=== PATIENT | male | born 1955 | race Caucasian/White ===

== ENCOUNTER → 2019-09-08 | Outpatient (CLI) | payer OTHER ==
[~2019-09-08] MED LIST: CATHETER FLUSH 10 ML SYR IV PRN; HOLD METFORMIN - RECEIVED CONTRAST 20 ML VIAL IV SCH; IOHEXOL 350 MG/ML 100 ML (OMNIPAQUE 350) VIAL IV ONE; NS 100 ML (IVPB) BAG IV ONE
--- NOTE | 2019-09-08 10:36 | Diagnostic Imaging Report ---
PROCEDURE: CT abdomen and pelvis with and without contrast. TECHNIQUE: Precontrast acquisitions were acquired through the abdomen and pelvis. Multiple contiguous axial images were obtained through the abdomen and pelvis after the administration of intravenous contrast. Auto Exposure Controls were utilized during the CT exam to meet ALARA standards for radiation dose reduction. INDICATION: Abdominal pain and hematuria. COMPARISON: No prior studies are available for comparison. FINDINGS: The lung bases are clear. No discrete liver mass is identified. Gallbladder is unremarkable. No biliary ductal dilatation is seen. The pancreas and spleen are unremarkable. No adrenal mass is identified. Left kidney does contain an 8 mm nonobstructing calculus. No hydronephrosis is seen. No definite ureteral calculus or hydronephrosis is identified. There are small renal cortical low densities, too small to characterize but may represent cysts. No definite filling defects within the renal collecting systems or ureters are seen. Bladder is unremarkable. Prostate does appear to be enlarged and contains some calcifications. The aorta is calcified but not aneurysmal. No central, retroperitoneal or mesenteric lymphadenopathy is seen. The small and large bowel loops are normal caliber. No obstruction is identified. There is diverticulosis of the sigmoid but no evidence of acute diverticulitis. No definite pelvic lymphadenopathy is seen. There is a fat-containing left inguinal hernia. The bony structures are nonacute. IMPRESSION: 1. 8mm nonobstructing left renal calculus. 2. Tiny renal cortical low densities, too small to characterize but may represent cysts. 3. Uncomplicated diverticulosis. 4. Prostatomegaly. 5. Fat-containing left inguinal hernia. Dictated by: Dictated on workstation # [id number]
== END ==
LOC: RAD FS 09:35
PROVIDERS: ATTEND Nurse Practitioner Family
DX: M54.6 Pain in thoracic spine (principal); N20.0 Calculus of kidney; K57.30 Diverticulosis of large intestine without perforation or abscess without bleeding; N40.0 Benign prostatic hyperplasia without lower urinary tract symptoms; K40.90 Unilateral inguinal hernia, without obstruction or gangrene, not specified as recurrent
CPT/HCPCS: 74178

== ENCOUNTER → 2020-03-08 | Outpatient (CLI) | payer OTHER ==
--- NOTE | 2020-03-08 14:06 | Diagnostic Imaging Report ---
INDICATION: Kidney stone. COMPARISON: 09/08/2019. FINDINGS: The previously reported calculus in the left kidney on the CT scan of 09/08/2019 measuring approximately 8 mm is unchanged. No new calculi have developed. No calcifications are seen along the path of the ureter. IMPRESSION: Persistent 8 mm calculus in the upper pole of the left kidney. Dictated by: Dictated on workstation # [id number]
== END ==
LOC: RAD 13:21
PROVIDERS: ATTEND Urology
DX: N20.0 Calculus of kidney (principal)
CPT/HCPCS: 74018

== ENCOUNTER 2020-03-12 09:14 | Outpatient (RCR) | payer OTHER ==
[~2020-03-12] VITALS: Ht 180.3 cm; Wt 81.8 kg
== END 2020-03-12 15:08 | disposition home or self-care (01) ==
LOC: PREOP 09:14
PROVIDERS: ATTEND Urology
DX: Z01.818 Encounter for other preprocedural examination (principal); Z11.59 Encounter for screening for other viral diseases
CPT/HCPCS: 87635

== ENCOUNTER 2020-03-16 08:48 | Day surgery (SDC) | payer OTHER ==
[~2020-03-16] VITALS: Ht 180.3 cm; Wt 81.8 kg
[2020-03-16] VITALS (9 sets, daily range): BP systolic 139–182; BP diastolic 84–96
[2020-03-16] MEDS ORDERED: ceFAZolin INJECTION 1,000 MG in WATER (STERILE) FOR INJECTION 10 ML IV ONE (09:00)
--- NOTE | 2020-03-16 09:36 | Diagnostic Imaging Report ---
INDICATION: Preop left kidney stone. COMPARISON: 03/08/2020. FINDINGS: An 8 mm calculus overlying the upper pole of the left kidney is again demonstrated, unchanged in location. No additional calculi are demonstrated. IMPRESSION: Calculus overlying the upper pole of the left kidney, unchanged in appearance when compared with the previous exam. Dictated by: Dictated on workstation # [id number]
--- NOTE | 2020-03-16 09:38 | Progress Note-Pre Operative ---
Pre-Operative Progress Note H&P Reviewed The H&P was reviewed, patient examined and no changes noted. Date Seen by Provider: March 16, 2020 Time Seen by Provider: 09:38 Date H&P Reviewed: March 16, 2020 Time H&P Reviewed: 09:38 Pre-Operative Diagnosis: LT RENAL STONE ANTONELLA MARSHALL MD March 16, 2020 09:38
[2020-03-16] MEDS: LACTATED RINGERS 1,000 ML IV PRN ×2 (09:41→12:20)
--- OUTSIDE RECORDS SUMMARY | 2020-03-16 09:46 | XMS REPORT | Continuity of Care Document ---
Author Organization Unknown Address Unknown Phone Unavailable Allergies Active Description Code Type Severity Reaction Onset Reported/Identified Relationship to Patient Clinical Status Yes Sulfa (Sulfonamide Antibiotics) [id number] 0491 Drug Allergy Unknown N/A 019 Medications There is no data. Problems Date Dx Coded Attending Type Code Diagnosis Diagnosed By 10/11/1507 ANTONELLA MARSHALL MD, Ot Z01.8 18 ENCOUNTER FOR OTHER PREPROCEDURAL EXAMIN 10/11/1507 ANTONELLA MARSHALL MD, Ot Z11.5 9 ENCOUNTER FOR SCREENING FOR OTHER VIRAL 09/23/2019 AMBER BARCENAS APRN Ot K40.90 UNIL INGUINAL HERNIA, W/O OBST OR GANGR, 09/23/2019 AMBER BARCENAS APRN Ot K57.30 DVRTCLOS OF LG INT W/O PERFORATION OR AB 09/23/2019 AMBER BARCENAS APRN Ot M54.6 PAIN IN THORACIC SPINE 09/23/2019 AMBER BARCENAS APRN Ot N20.0 CALCULUS OF KIDNEY 09/23/2019 AMBER BARCENAS APRN Ot N40.0 BENIGN PROSTATIC HYPERPLASIA WITHOUT LOW 03/09/2020 ANTONELLA MARSHALL MD Ot N20.0 CALCULUS OF KIDNEY Procedures There is no data. Results Test Result Range CBC w/MANUAL DIFF - 09/01/19 13:03 WHITE BLOOD CELL COUNT 5.6 Thousand/uL 3 .8-10.8 RED BLOOD CELL COUNT 4.77 Million/uL 4.2 0-5.80 HEMOGLOBIN 14.7 g/dL 13.2-17.1 HEMATOCRIT 44.4 % 38.5-50.0 MCV 93.1 fL 80.0-100.0 MCH 30.8 pg 27.0-33.0 MCHC 33.1 g/dL 32.0-36.0 RDW 12.3 % 11.0-15.0 PLATELET COUNT 324 Thousand/uL 140-400 MPV 10.0 fL 7.5-12.5 ABSOLUTE NEUTROPHILS 1994 cells/uL 1500- 7800 ABSOLUTE MONOCYTES 386 cells/uL 200-950 ABSOLUTE EOSINOPHILS 112 cells/uL 15-500 ABSOLUTE BASOPHILS 0 cells/uL 0-200 NEUTROPHILS 35.6 % NRG LYMPHOCYTES 55.5 % NRG MONOCYTES 6.9 % NRG EOSINOPHILS 2.0 % NRG BASOPHILS 0 % NRG ABSOLUTE LYMPHOCYTES 3108 cells/uL 850-3 900 PLATELET ESTIMATION ADEQUATE ADEQUATE COMMENT(S) NRG CULTURE, URINE - 09/01/19 13:03 CULTURE, URINE, ROUTINE SEE NOTE NRG Coronavirus SARS-CoV-2 SO 2018 - 0 13:30 Coronavirus Ab [Units/volume] in Serum Negative Negative Encounters ACCT No. Visit Date/Time Discharge Status Pt. Type Provider Facility Loc./Unit Complaint [id number] 09/01/2019 10:40:00 09/01/2019 23:59: 59 CLS Outpatient AMBER BARCENAS [facility] [id number] 09/01/2019 10:40:00 Document Registration [id number] 03/12/2020 09:14:00 15:08:00 DIS Outpatient ANTONELLA MARSHALL MD [facility] PREOP LEFT RENAL STONE [id number] 03/08/2020 13:21:00 23:59:59 CLS Outpatient ANTONELLA MARSHALL MD [facility] RAD LT RENAL STONE [id number] 09/08/2019 09:35:00 23:59:59 CLS Outpatient AMBER BARCENAS APRN [facility] RAD FS PAIN IN THORACIC SPINE [id number] 03/16/2020 11:00:00 P EN Preadmit ANTONELLA MARSHALL MD [facility] SDC LEFT RENAL STONE
--- NOTE | 2020-03-16 10:38 | Progress Note-Post Operative ---
Post-Operative Progess Note Surgeon (s)/Soap Inspector (s) Surgeon ANTONELLA MARSHALL MD Soap Inspector: NONE Pre-Operative Diagnosis LT RENAL STONE Post-Operative Diagnosis SAME Procedure & Operative Findings Date of Procedure 03/16/20 Procedure Performed/Findings LT ESWL Anesthesia Type GENERAL Estimated Blood Loss Estimated blood loss (mL): NONE Specimens/Packing Specimens Removed NONE Packing: NONE ANTONELLA MARSHALL MD March 16, 2020 10:38
--- NOTE | 2020-03-16 10:40 | Discharge Inst-Urology ---
Discharge Inst-Urology Reconcile Patient Problems Problems Reviewed?: Yes Final Diagnosis LT RENAL STONE Patient Instructions/Follow Up Plan/Assessment/Instructions Please make appointment to been seen in office Thursday 03/29, KUB prior to it. KUB on way home Post ESWL instructions Increase oral fluids for 48 hours and then as needed. Diet and Activity as tolerated. If questions or concerns contact your physician Or seek help at emergency department. ANTONELLA MARSHALL MD March 16, 2020 10:40
[2020-03-16] MEDS ORDERED: FUROSEMIDE 40 MG/4 ML INJ (LASIX) ONE (11:00)
[2020-03-16] MEDS ORDERED: proPOfol 200 MG/20 ML (DIPRIVAN) VIAL IV ONE (11:00)
[2020-03-16] MEDS ORDERED: LIDOCAINE PF 2% 5 ML (XYLOCAINE) VIAL ONE (11:00)
[2020-03-16] MEDS ORDERED: ONDANSETRON 4 MG/2 ML (SDV) Z0FRAN ONE (11:00)
[2020-03-16] MEDS ORDERED: SEVOFLURANE (ULTANE) 15 ML INHAL SOLN ONE (11:00)
[2020-03-16] MEDS ORDERED: KETOROLAC 30 MG/ML VIAL ONE (11:00)
[2020-03-16] MEDS ORDERED: DEXAMETHASONE 10 MG/ML (DECADRON) 1 ML VIAL ONE (11:00)
[2020-03-16] MEDS ORDERED: MIDAZOLAM 2 MG/2 ML (VERSED) VIAL ONE (11:03)
[2020-03-16] MEDS ORDERED: fentaNYL INJECTION 100 MCG/2 ML AMP ONE (11:03)
--- NOTE | 2020-03-16 13:15 | NUR ---
VOIDED 650 CC LIGHT [place] COLORED URINE WITHOUT PROBLEM, STRAINED, NO STONE FRAGMENTS OBTAINED. DENIES COMPLAINTS, ALERT.
--- NOTE | 2020-03-16 13:22 | Anesthesia-General Post-Op ---
General Patient Condition Mental Status/LOC: Same as Preop Cardiovascular: Satisfactory Nausea/Vomiting: Absent Respiratory: Satisfactory Pain: Controlled Complications: Absent Post Op Complications Complications None Follow Up Care/Instructions Patient Instructions None needed. Anesthesia/Patient Condition Patient Condition Patient is doing well, no complaints, stable vital signs, no apparent adverse anesthesia problems. No complications reported per nursing. PARK CRESPO CRNA March 16, 2020 13:22
[2020-03-16] MEDS ORDERED: TMSL.4C PO (13:40)
[2020-03-16] MEDS ORDERED: TRM50T PO (13:40)
[2020-03-16] MEDS ORDERED: NITR-65 PO (13:40)
--- NOTE | 2020-03-16 14:00 | NUR ---
VOIDED DARK PINK URINE WITHOUT PROBLEM, NO STONE FRAGMENTS OBTAINED. REMAINS ALERT, DENIES COMPLAINTS. TAKING PO FLUIDS WELL AND REQUESTING DISMISSAL.
--- NOTE | 2020-03-16 14:15 | Diagnostic Imaging Report ---
INDICATION: Post extracorporeal shock wave lithotripsy. TECHNIQUE: Single supine view of the abdomen 1:59 PM CORRELATION STUDY: 03/16/2020 FINDINGS: The previously noted approximately 8 mm calcification over the superior pole left kidney is again demonstrated but has developed fragmentation appearance. Calcifications remain largely grouped. No definitive calcification over the expected course of ureter. Rather prominent amount of overlying bowel gas and stool is present. IMPRESSION: 1. Fragmented appearance about the previously noted solitary left superior pole calculus. Dictated by: Dictated on workstation # [id number]
--- NOTE | 2020-03-16 16:05 | OPERATIVE REPORT ---
DATE OF SERVICE: 03/16/2020 PREOPERATIVE DIAGNOSIS: Left renal stone. POSTOPERATIVE DIAGNOSIS: Left renal stone. OPERATION PERFORMED: Left ESWL. SURGEON: Blaine Marshall MD ANESTHESIA: General. COMPLICATIONS: None. DESCRIPTION OF PROCEDURE: Under satisfactory general anesthesia, the patient in supine position, the left renal stone was localized. Shocks were delivered at kV of 6, a total of 3000 shocks completely fragmented the stone. The patient received 40 mg of Lasix and 30 mg of Toradol IV at the end of the procedure. He tolerated the procedure and anesthesia well and was sent to recovery room in stable condition. Job ID: [id number] DocumentID: [id number] Dictated Date: 03/16/2020 12:06:46 Cut Out Worker Date: 03/16/2020 16:04:48 Dictated By: BLAINE MARSHALL MD
== END 2020-03-16 14:11 | disposition home or self-care (01) ==
LOC: SDC 08:48
PROVIDERS: ATTEND Urology
DX: N20.0 Calculus of kidney (principal); M19.90 Unspecified osteoarthritis, unspecified site; Z88.2 Allergy status to sulfonamides; Z80.3 Family history of malignant neoplasm of breast; Z83.3 Family history of diabetes mellitus; Z82.49 Family history of ischemic heart disease and other diseases of the circulatory system
CPT/HCPCS: 74018; 87081

== ENCOUNTER → 2020-03-29 | Outpatient (CLI) | payer OTHER ==
[~2020-03-29] MED LIST changes: -CATHETER FLUSH 10 ML SYR IV PRN; -HOLD METFORMIN - RECEIVED CONTRAST 20 ML VIAL IV SCH; -IOHEXOL 350 MG/ML 100 ML (OMNIPAQUE 350) VIAL IV ONE; +NITR-65 PO; -NS 100 ML (IVPB) BAG IV ONE; +TMSL.4C PO; +TRM50T PO
--- NOTE | 2020-03-29 13:17 | Diagnostic Imaging Report ---
EXAM: ABDOMEN/KUB 1VIEW. INDICATION: Left renal stone. Status post lithotripsy. COMPARISON: Abdomen radiograph 03/16/2020. FINDINGS: The previously seen fragmented radiopaque density overlying the upper pole of the left kidney measuring up to 0.9 cm is no longer seen. There is a new 0.3 cm radiopaque density overlying the lower pole of the left kidney. No other findings suspicious for renal stones. Nonspecific bowel gas pattern. No acute osseous findings. IMPRESSION: Interval resolution of the calculus overlying the upper pole of the left kidney with a new 0.3 cm calculus overlying the lower pole of the left kidney. Dictated by: Dictated on workstation # [id number]
== END ==
LOC: RAD 12:44
PROVIDERS: ATTEND Urology
DX: N20.0 Calculus of kidney (principal); Z98.890 Other specified postprocedural states
CPT/HCPCS: 74018

== ENCOUNTER 2021-08-18 05:36 | Outpatient (CLI) | payer MEDICARE, OTHER ==
[~2021-08-18] VITALS: Ht 182.9 cm; Wt 86.2 kg
[2021-08-23] MEDS ORDERED: NAPR220C11 PO (09:34)
[2021-08-23] MEDS ORDERED: ALLO100T PO (09:34)
[2021-08-23] MEDS ORDERED: MULT-1136 PO (09:34)
== END 2021-08-23 10:01 | disposition home or self-care (01) ==
LOC: PREOP 05:36
PROVIDERS: ATTEND Podiatrist Foot & Ankle Surgery
DX: Z01.818 Encounter for other preprocedural examination (principal)

== ENCOUNTER 2021-08-26 06:01 | Day surgery (SDC) | payer MEDICARE, OTHER ==
[2021-08-26] VITALS (11 sets, daily range): BP systolic 68–214; BP diastolic 50–98
[~2021-08-26] VITALS: Ht 182.9 cm; Wt 86.2 kg
[~2021-08-26 06:01] MED LIST changes: +ALLO100T PO; +MULT-1136 PO; +NAPR220C11 PO
[2021-08-26] MEDS ORDERED: ceFAZolin INJECTION 1,000 MG in WATER (STERILE) FOR INJECTION 10 ML IV ONE (06:15)
[2021-08-26] MEDS ORDERED: LACTATED RINGERS 1,000 ML IV PRN (06:15)
[2021-08-26] MEDS ORDERED: ceFAZolin INJECTION 1,000 MG ONE (06:23)
[2021-08-26] MEDS ORDERED: LIDOCAINE 1% INJ 20 ML 20 ML VIAL ONE (07:23)
[2021-08-26] MEDS ORDERED: BUPIVACAINE 0.5% 30 ML (SENSORCAINE) VIAL ONE (07:24)
[2021-08-26] MEDS ORDERED: fentaNYL INJ 100 MCG/2 ML AMP ONE ×2 (07:30→09:52)
--- NOTE | 2021-08-26 07:34 | Progress Note-Pre Operative ---
Pre-Operative Progress Note H&P Reviewed The H&P was reviewed, patient examined and no changes noted. Date Seen by Provider: Aug 26, 2021 Time Seen by Provider: 07:34 Date H&P Reviewed: Aug 26, 2021 Time H&P Reviewed: 07:34 Pre-Operative Diagnosis: Hallux Valgus, 2nd Hammertoe, right XAVI,JULIETTE Q DPM Aug 26, 2021 07:34
[2021-08-26] MEDS ORDERED: GLYCOPYRROLATE 0.2 MG/ML (ROBINUL) 2 ML VIAL ONE (09:09)
[2021-08-26] MEDS ORDERED: LIDOCAINE PF 2% 5 ML (XYLOCAINE) VIAL ONE (09:09)
[2021-08-26] MEDS ORDERED: proPOfol 200 MG/20 ML (DIPRIVAN) VIAL IV ONE (09:09)
[2021-08-26] MEDS ORDERED: ONDANSETRON 4 MG/2 ML (SDV) Z0FRAN ONE (09:09)
[2021-08-26] MEDS ORDERED: SEVOFLURANE (ULTANE) 15 ML INHAL SOLN ONE (10:07)
--- NOTE | 2021-08-26 10:27 | Progress Note-Post Operative ---
Post-Operative Progess Note Surgeon (s)/Marketing Area Manager (s) Surgeon JULIETTE HURLEY DPM Marketing Area Manager: none Pre-Operative Diagnosis Hallux Valgus, 2nd Hammertoe, right Post-Operative Diagnosis Same, plus hammertoes right 3rd and 4th Procedure & Operative Findings Date of Procedure 08/26/21 Procedure Performed/Findings Zander-Parker bunionectomy, Reduction of 2nd hammertoe, flexor tendon release 3rd and 4th toes, all right foot Anesthesia Type General Estimated Blood Loss Estimated blood loss (mL): Minimal Specimens/Packing Specimens Removed Bone from 1st metatarsal head JULIETTE HURLEY DPM Aug 26, 2021 10:27
[2021-08-26] MEDS ORDERED: HYDROcodone/APAP 5 MG/325 MG (LORTAB) TAB PO PRN (10:30)
[2021-08-26] MEDS ORDERED: ACHD5005 PO (10:30)
[2021-08-26] MEDS ORDERED: LACTATED RINGERS 1,000 ML IV SCH (10:30)
[2021-08-26] MEDS ORDERED: MEPERIDINE (DEMEROL) INJ 50 MG/ML ONE (10:39)
[2021-08-26] MEDS ORDERED: MEPERIDINE (DEMEROL) INJ 50 MG/ML IVP ONE (11:00)
--- NOTE | 2021-08-26 13:04 | Anesthesia-General Post-Op ---
General Patient Condition Mental Status/LOC: Same as Preop Cardiovascular: Satisfactory Nausea/Vomiting: Absent Respiratory: Satisfactory Pain: Controlled Complications: Absent Post Op Complications Complications None Follow Up Care/Instructions Patient Instructions None needed. Anesthesia/Patient Condition Patient Condition Patient is doing well, no complaints, stable vital signs, no apparent adverse anesthesia problems. No complications reported per nursing. MADISON FREY CRNA Aug 26, 2021 13:04
--- NOTE | 2021-08-26 14:56 | OPERATIVE REPORT ---
DATE OF SERVICE: 08/26/2021 SURGEON: Juliette Hurley DPM. PREOPERATIVE DIAGNOSES: 1. Hallux abductovalgus metatarsus primus varus, right. 2. Hammertoe, right. 3. Flexible hammer digit syndrome, right third and fourth digits. POSTOPERATIVE DIAGNOSES: 1. Hallux abductovalgus metatarsus primus varus, right. 2. Hammertoe, right. 3. Flexible hammer digit syndrome, right third and fourth digits. PROCEDURE: 1. Modified Zander-Parker bunionectomy, right. 2. Reduction of hammertoe with flexor tendon transfer on the right second digit. 3. Flexor tendon release to the right third and fourth digits. WOUND CLASS: Clean. ANESTHESIA: General. HEMOSTASIS: Pneumatic thigh tourniquet at 300 mmHg. INDICATIONS: This 65-year-old male presents complaining of a painful right foot. Conservative therapy has met with unsatisfactory results and the patient is agreeable to surgical intervention after risks and complications were discussed at length. No guarantees were extended to the patient and he is willing to proceed. DESCRIPTION OF PROCEDURE: The patient was brought back to the operating table, placed in secure supine position. General anesthetic was then induced. Appropriate timeout was performed. Pneumatic thigh tourniquet was placed on the right lower extremity. The right foot was addressed with 10 mL of 1:1 mixture of 1% Xylocaine, 0.5% Marcaine and injected in a Alcantara block as well as a local block to the right second digit. The right foot was then prepped and draped in normal sterile manner. The right foot was then elevated and allowed to exsanguinate after which the tourniquet was inflated to 300 mmHg. Attention was then directed to the dorsal aspect of the first metatarsophalangeal joint where a 6 cm longitudinal linear incision was created. The incision was deepened in same plane with great care to identify and retract all vital neurovascular structures. Only necessary blood vessels were cauterized as encountered. The incision was deepened down to the capsular tissue where a longitudinal capsulotomy was performed. The capsular tissue was reflected medial laterally exposing the hypertrophic dorsal and medial eminence to the first metatarsal head, which was resected utilizing a power sagittal saw. White chalky like material was identified around the area grossly identified as tophi. Attention was then directed to the intermetatarsal space where blunt dissection was carried out. Lateral capsulorrhaphy was performed to the first metatarsophalangeal joint, followed by a release of the conjoint tendon of the adductor hallucis as well as the fibular sesamoidal ligament. The hallux was then forcibly adducted releasing any additional fibers holding in its abnormal position. Attention was then directed to the medial aspect of the first metatarsal where a Chevron-type osteotomy was performed at the surgical neck, allowing the capital fragment to translocate laterally after which it was fixated in its corrected position with a 0.062 threaded K-wire from dorsal proximal to plantar distal. The K-wire was cut flush to the dorsal aspect of the metatarsal. The head of the first metatarsal was further contoured and smoothed with a power sagittal saw and power bur. Attention was then directed to the proximal phalanx where a subperiosteal dissection was carried out to the proximal phalanx of the hallux, after which a wedge of bone was resected utilizing a power sagittal saw, the base medial and the lateral cortices held intact. Once the wedge of bone was resected, the gap was closed, allowing for better alignment of the distal portion of the hallux. Two area relief pilot holes were created at the dorsal medial aspect of the osteotomy allowing for a 28-gauge monofilament wire to pass through and secured the osteotomy in a closed position. Excellent bony apposition and fixation was appreciated to the first ray after which the incision was flushed and closed in layers. A deep closure was performed with 3-0 Vicryl, superficial with 4-0 Vicryl, skin closure with 4-0 Prolene in a horizontal mattress type stitch. Attention was then directed to the right second toe where a right second toe was rigidly dorsally contracted and medially deviated. The incision was from the metatarsal head to the distal interphalangeal joint. The incision was deepened in the same plane with great care to identify and retract all vital neurovascular structures. Only necessary blood vessels were cauterized as encountered. A Z slide lengthening was performed overlying the proximal phalanx. The extensor tendon reflected proximally and the extensor rock released. A dorsal capsulorrhaphy was performed to the metatarsophalangeal joint as well as release of the medial and lateral collateral ligaments. The proximal phalanx remained in a dorsiflexed position and a McGlamry elevator was utilized to release any plantar adhesions. This allowed the proximal phalanx to come down into a more rectus alignment, but it failed to come all the way down into what would be the weightbearing level for the foot. Because of the amount of elevation, it was then decided that a flexor tendon transfer would be appropriate. Utilizing a 3 mm bit, a hole was created from the dorsal to plantar aspect of the proximal diaphysis of the proximal phalanx, right second toe. Next, long flexor tendon was identified and a release was performed at the interphalangeal joint. The tendon was then transferred from plantar to dorsal and secured in a corrected position with a 2-0 Ethibond. Next, the head of the proximal phalanx was fashioned into a peg with a power sagittal saw and power bur and a hole was created at the middle phalanx for the peg-in-hole type arthrodesis. A 0.062 smooth K-wire was driven down the toe, securing the flexor tendon transfer as well as the digit in appropriate alignment. The wound was flushed with copious amounts of normal saline throughout the procedure. A protective ball was placed over the end of the wire and the wound was then closed in layers. Deep closure was performed with 3-0 Vicryl, superficial with 4-0 Vicryl and skin closed with 4-0 Prolene in a horizontal mattress type stitch. There is some medial deviation to the third and fourth digits with a flexible contracture. It was then decided that to avoid overlapping of the second digit, which now came down into more appropriate alignment that the tendons release to the flexor portion of the third and fourth digits would be appropriate. Utilizing an 11 blade, a stab incision was created at the plantar aspect of the proximal interphalangeal joint of the third and fourth digits. The end of the blade palpated the flexor tendon and it was released. These areas were then cleansed. A 0.054 smooth K-wire was driven out at the end of the toe, securing the digits in rectus alignment. The patient tolerated this well. The tourniquet was released noting appropriate cap refill time to all digits of the right foot. Postoperative injection consisted of 20 mL of 0.5% Marcaine injected in a local infusion to the surgical sites. Also, 10 mg dexamethasone was injected into the first intermetatarsal space and particularly, the first metatarsophalangeal joint area. Postoperative dressing consisted of Betadine soaked Adaptic, sterile 4 x 4, sterile Kerlix all secured with a Coban wrap. The patient tolerated the anesthesia and procedure well, was transported from the operating room to the recovery room with vital signs stable and vascular status intact to all digits of the right foot. The patient is to follow up in my office in 10 days' period of time or sooner if necessary. He is to be nonweightbearing on the right lower extremity. He was given a prescription for Keflex and Vicodin. Job ID: [id number] DocumentID: [id number] Dictated Date: 08/26/2021 10:41:22 Stock Handler Date: 08/26/2021 14:55:10 Dictated By: JULIETTE HURLEY DPM
--- NOTE | 2021-08-26 16:00 | Physical Therapy Ortho Eval ---
PT Orthopedic Evaluation Type of Surgery Prior Level of Function Current Living Status: Alone Locomotion (Upon Admit): Independent Established Durable Medical Eq: None Subjective Subjective Patient reports pain currently at 6/10 in the right foot. Entry Into Home: Stairs With Railing Steps Into Home: 2 Steps Inside Home: 0 Steps Accessories: Railing Present Motor Control Motor Control: Motor Control WNL ROM ROM: WFL, except focal deficit Strength Strength: WFL Transfer SCALE: Activities may be completed with or without assistive devices. 1-Gmblfbkmgc-ccxwwac completes the activity by him/herself with no assistance from a helper. 5-Set-up or Clean-up Assistance-helper sets up or cleans up; patient completes activity. [place] assists only prior to or following the activity. 4-Supervision or Touching Assistance-helper provides verbal cues and/or touching/steadying and/or contact guard assistance as patient completes activity. Assistance may be provided throughout the activity or intermittently. 3-Partial/Moderate Assistance-helper does LESS THAN HALF the effort. [place] lifts, holds or supports trunk or limbs, but provides less than half the effort. 2-Substantial/Maximal Assistance-helper does MORE THAN HALF the effort. [place] lifts or holds trunk or limbs and provides more than half the effort. 6-Eqdqnlcit-ooddtl does ALL the effort. Patient does none of the effort to complete the activity. Or, the assistance of 2 or more helpers is required for the patient to complete the activity. If activity was not attempted, code reason: 7-Patient Refused. 9-Not Applicable-not attempted and the patient did not perform the activity before the current illness, exacerbation or injury. 10-Not Attempted due to Environmental Limitations-(lack of equipment, weather restraints, etc.). 88-Not Attempted due to Medical Conditions or Safety Concerns. Transfers (B, C, W/C) (QC): 5 Gait Gait Assistive Device: Crutches Right Lower Extremity: Right Weight Bearing Status RLE: Non Weight Bearing Left Lower Extremity: Left Weight Bearing Status LLE: Full Weight Bearing Gait (QC): 50 Distance (QC): 0=598-58 ft Distance: 50 Gait Level of Assist: 4 Summary/Comments Patient ascended/descended 2 steps with axillary curtches, with CGA and verbal cues for performance. Assessment/Goals Goal Time Frame: 1 Visit Safe Ambulation: Yes Plan Treatment Plan: Discharge PT/Family Agrees to Plan: Yes Time Time In: 1240 Time Out: 1255 Total Billed Treatment Time: 15 Billed Treatment Time Visit, PADMINI Avendano PT Aug 26, 2021 16:00
--- NOTE | 2021-08-29 07:23 | Diagnostic Imaging Report ---
EXAM: Right foot radiograph EXAM DATE: 08/29/2021 COMPARISON: None. HISTORY: Postoperative evaluation of the right foot. TECHNIQUE: 2 views of the right foot. FINDINGS: There is a minimally displaced fracture of the distal right 1st metatarsal with orthopedic pin in place. Orthopedic pins are seen through the phalanges of the 2nd, 3rd and 4th digit. These appear to be in appropriate positioning. There is extensive subcutaneous swelling and mild air likely postoperative. No other acute fracture, dislocation, or destructive osseous process is seen. No other radiopaque foreign body. IMPRESSION: Surgical changes of the right foot with hardware in good positioning. Dictated by: Dictated on workstation # [id number]
== END 2021-08-26 13:25 | disposition home or self-care (01) ==
LOC: SDC 06:01
PROVIDERS: ATTEND Podiatrist Foot & Ankle Surgery
DX: M20.11 Hallux valgus (acquired), right foot (principal); M20.41 Other hammer toe(s) (acquired), right foot; M10.9 Gout, unspecified; Z79.899 Other long term (current) drug therapy; Z83.3 Family history of diabetes mellitus; Z80.3 Family history of malignant neoplasm of breast
CPT/HCPCS: 28232 ×2; 28285; 28299; 73620; 87081; 88304; 97161; C1713